=== PATIENT | male | born 1950 | race Caucasian/White ===

== ENCOUNTER → 2020-01-01 13:51 | Outpatient (BNVA) | payer MEDICARE, BC, SELFPAY | PROVIDERS: Visit Provider Student in an Organized Health Care Education/Training Program | DX: M25.551 Pain in right hip (principal); M16.11 Unilateral primary osteoarthritis, right hip | CPT/HCPCS: 99203 ==

== ENCOUNTER 2020-01-08 01:27 | Outpatient (CLI) | payer MEDICARE, BC, SELFPAY ==
--- NOTE | 2020-01-08 14:37 | W.PROCNOTE ---
Date of service: 01/08/20 Time of Service: 14:37 Procedure Note Date of procedure: 01/08/20 Procedure: Right Hip Injection with Fluoroscopic Guidance Surgeon/Proceduralist/Physician: Refugio Manley Procedure Diagnosis: Right Hip Osteoarthritis Procedure Indications: Josh has had persistent pain of the RIGHT hip and groin. Noninvasive measures have been tried. To serve as both diagnostic and therapeutic, an injection under fluoroscopy was recommended. I had discussed the risks of the procedure and the patient elected to proceed. Procedure Description: Josh was greeted in the flouroscopy room. The correct side was identified and the consent was reviewed with the patient and signed. The patient was then placed in the supine position on the fluoroscopy table. The RIGHT hip was then prepped with Chloraprep. The anterolateral injection starting point was identiifed by bony landmarks and fluoroscopy. The skin and soft tissue in the tract of the injection was anesthetized with 1% Lidocaine. A spinal needle was then inserted deep into the hip joint at the level of the lateral femoral neck under fluoroscopic guidance. A small amount of Omnipaque solution was injected to confirm intraarticular placement. Once confirmed, the hip was injected with 6cc of 0.5% Bupivicaine and 80mg of Depo-Medrol. A bandaid was placed on the injection site. The patient tolerated the procedure well and noted improvement in pre-injection pain.
--- NOTE | 2020-01-08 14:40 | DI.RAD_ITS ---
EXAM: RF JOINT INJECTION FLUORO GUID CLINICAL HISTORY: R HIP INJ UNDER FLUORO, RT HIP PAIN, M25.551 TECHNIQUE: 2D and realtime digital imaging was performed. CONTRAST MATERIAL: Water soluble contrast was administered. COMPARISON: No exams were available for comparison FINDINGS: Fluoroscopy was provided for Dr. Manley during the performance of a right hip injection. Please r efer to the procedure report for complete details. Fluoro time: 4 seconds
[2020-01-08] MEDS: Bupivacaine 0.5% Pres-Free 10 ML VIAL 20 ML IJ (15:00)
[2020-01-08] MEDS: Omnipaque 300 MG/ML 10 ML BTL IJ (15:01)
[2020-01-08] MEDS: methylPREDNISolone ACETATE 80 MG/ML VIAL IM (15:02)
== END 2020-01-08 01:47 ==
PROVIDERS: PCP Family Medicine; Visit Provider Student in an Organized Health Care Education/Training Program
DX: M25.551 Pain in right hip (principal); M16.11 Unilateral primary osteoarthritis, right hip
CPT/HCPCS: 20610; 77002; J1040

== ENCOUNTER 2024-10-28 08:02 | Outpatient (REF) | payer MEDICARE, BC, SELFPAY ==
--- NOTE | 2024-10-28 07:42 | SKI_PTH ---
PATIENT: Josh Keating LOC: [facility] U#:[id number] AGE/SX: 74/M ROOM: RE10/28/[address]: Jose J Jay MD : 1950 BED: DIS: 10/28/2024 SPEC #: [id number] RECD: 10/28/24 15:49 STATUS: GIGI RESangeeta #: [id number] SHELBIE: 10/28/24 07:[address]: Jose J Jay DEPT: Surgical Specimen RECD BY: Magda Lux ENTERED: 10/28/24 15:50 SP TYPE: SHERMAN MOCTEZUMA DR: Arely River Tissues: 1 - SKIN BIOPSY(SHAVE/PUNCH) Procedures: SKIN LEVEL 4 Comments: [id number]
== END 2024-10-28 08:03 | disposition home or self-care (01) ==
LOC: LBN 08:02
PROVIDERS: PCP Family Medicine; Visit Provider Otolaryngology
DX: C44.311 Basal cell carcinoma of skin of nose (principal); L98.9 Disorder of the skin and subcutaneous tissue, unspecified
CPT/HCPCS: 88305